=== PATIENT | female | born 1995 | race Hispanic/Latino ===

== ENCOUNTER 2024-10-26 20:42 | Emergency (ER) | payer MEDICAID ==
[2024-10-26 21:27] LABS: APPEARANCE,URINE CLEAR (Clear); BILIRUBIN,URINE NEGATIVE (Negative); COLOR,URINE YELLOW (Yellow); GLUCOSE,URINE NEGATIVE (Negative); KETONES,URINE NEGATIVE (Negative); LEUKOCYTE ESTERASE,URINE NEGATIVE (Negative); NITRITE,URINE NEGATIVE (Negative); OCCULT BLOOD,URINE 2+ (Negative); PROTEIN,URINE NEGATIVE (Negative); UROBILINOGEN,URINE 0.2 (0.2-1.0)
[2024-10-26 21:37] LABS: WBC,URINE 0-5 /hpf (0-5)
[2024-10-26 21:38] LABS: BACTERIA,URINE FEW /hpf (FEW); MUCUS,URINE FEW /hpf (FEW)
[2024-10-26] MEDS: metroNIDAZOLE 500 MG Tab PO ONE (23:13)
== END 2024-10-26 23:15 | disposition home or self-care (01) ==
LOC: JD.ED 20:42
DX: O41.8X20 Other specified disorders of amniotic fluid and membranes, second trimester, not applicable or unspecified (principal); N76.0 Acute vaginitis; Z88.0 Allergy status to penicillin; Z3A.16 16 weeks gestation of pregnancy
CPT/HCPCS: 76815; 81001; 81515; 99284; A9270; 99283